=== PATIENT | female | born 1955 | race Caucasian/White ===

== ENCOUNTER → 2016-08-17 | Outpatient (CLI) | payer SELFPAY ==
[~2016-08-17] MED LIST: ASPI81TA43 PO; ENAL5TAB PO; FURO40TA5 PO; INSULIN SQ; ONDA4TAB7 PO
[2016-08-17 19:46] LABS: ANION GAP 14 MEQ/L (5-15); BUN/CREATININE RATIO 32 RATIO (6-26); CALCIUM 9.9 MG/DL (8.4-10.2); CHLORIDE 91 MEQ/L (98-107); CO2 - CARBON DIOXIDE 32 MEQ/L (22-30); CREATININE 0.6 MG/DL (0.7-1.2); GLOMERULAR FILTRATION RATE 101; GLUCOSE 379 MG/DL (65-110); POTASSIUM 4.5 MEQ/L (3.6-5); SODIUM 137 MEQ/L (134-144)
== END ==
LOC: LAB 19:21
PROVIDERS: ATTEND Internal Medicine
DX: E87.5 Hyperkalemia (principal)
CPT/HCPCS: 36415; 80048